=== PATIENT | female | born 1990 | race Caucasian/White ===

== ENCOUNTER 2024-11-09 18:05 | Emergency (ER) | payer MEDICAID ==
[~2024-11-09] VITALS: Ht 172.7 cm; Wt 107.9 kg
[2024-11-09] MEDS ORDERED: predniSONE 20 MG TAB PO ONE (18:15)
[2024-11-09] MEDS ORDERED: ALBUTEROL/IPRATROPIUM 3 ML NEB INH ONE (18:15)
[2024-11-09] MEDS ORDERED: TRELEGY ELLIPT1 EACH INH (18:20)
[2024-11-09] MEDS ORDERED: VENTOLIN HFA18 GM INH (18:21)
[2024-11-09 19:50] VITALS: BP 146/86
== END 2024-11-09 19:50 | disposition home or self-care (01) ==
LOC: ED 18:05
DX: J45.909 Unspecified asthma, uncomplicated (principal); Z88.5 Allergy status to narcotic agent; Z88.2 Allergy status to sulfonamides; Z88.9 Allergy status to unspecified drugs, medicaments and biological substances
CPT/HCPCS: 94640; 99284; J7512

== ENCOUNTER 2025-01-13 16:08 | Emergency (ER) | payer MEDICAID ==
[~2025-01-13] VITALS: Ht 172.7 cm; Wt 107.9 kg
[~2025-01-13 16:08] MED LIST: TRELEGY ELLIPT1 EACH INH; VENTOLIN HFA18 GM INH
--- OUTSIDE RECORDS SUMMARY | 2025-01-13 16:13 | XMS ---
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 EFaraz VISIT COUNT (12 MO.) [address] [place] TOTAL 12 NOTE: Visits indicate total known visits. ED/C VISIT TRACKING (12 MO.) 01/13/2025 16:09 [facility] TYPE: Emergency COMPLAINT: - ALLERGIC REACTION 11/09/2024 18:05 [facility] TYPE: Emergency COMPLAINT: - TROUBLE BREATHING DIAGNOSES: - Allergy status to narcotic agent - Allergy status to sulfonamides - Allergy status to unspecified drugs, medicaments and biological substances - Unspecified asthma, uncomplicated 10/11/2024 13:35 [facility] TYPE: Emergency COMPLAINT: - Shortness of breath DIAGNOSES: - Acute bronchospasm - Dyspnea, unspecified - Shortness of breath 10/06/2024 09:32 [facility] TYPE: Emergency COMPLAINT: - Fever 102, cough, vomiting DIAGNOSES: - Other specified viral diseases - Pneumonia, unspecified organism - Tinea cruris - Urinary tract infection, site not specified - Fever - Fever 102 - Fever 102, cough, vomiting 09/17/2024 14:27 [facility] TYPE: Emergency COMPLAINT: - Med Refills DIAGNOSES: - Med Refills - Medication Refill 09/16/2024 15:22 [facility] TYPE: Emergency COMPLAINT: - Left Hip Pain DIAGNOSES: - Unspecified injury of pelvis, initial encounter - Urinary tract infection, site not specified - Hip Pain 08/22/2024 21:39 [facility] TYPE: Emergency COMPLAINT: - SOB DIAGNOSES: - Severe persistent asthma with (acute) exacerbation - Shortness of breath - Shortness of Breath - SOB 08/03/2024 09:36 [facility] TYPE: Emergency COMPLAINT: - Left hand laceration DIAGNOSES: - Laceration without foreign body of left middle finger without damage to nail, initial encounter - Laceration - Left hand laceration 06/01/2024 15:01 [facility] TYPE: Emergency COMPLAINT: - right foot pain DIAGNOSES: - Sprain of unspecified ligament of right ankle, initial encounter - Ankle Pain - right foot pain 05/22/2024 03:55 [facility] TYPE: Emergency COMPLAINT: - Asthma DIAGNOSES: - Moderate persistent asthma with (acute) exacerbation - Nausea with vomiting, unspecified - Shortness of breath - Asthma - Shortness of Breath - Vomiting 05/18/2024 04:57 [facility] TYPE: Emergency COMPLAINT: - SOB DIAGNOSES: - Moderate persistent asthma with (acute) exacerbation - Shortness of breath - Shortness of Breath - SOB 04/11/2024 15:35 [facility] TYPE: Emergency COMPLAINT: - Fall, hip pain DIAGNOSES: - Pain in right hip - Unspecified fall, initial encounter - Fall, hip pain - Hip Pain INPATIENT VISIT TRACKING (12 MO.) 10/06/2024 14:44 [facility] TYPE: Medical Surgical COMPLAINT: - Fever 102, cough, vomiting DIAGNOSES: - Other specified viral diseases - Pneumonia, unspecified organism - Severe persistent asthma with (acute) exacerbation - Tinea cruris - Urinary tract infection, site not specified [email or web address]
[2025-01-13] MEDS ORDERED: predniSONE 20 MG TAB PO ONE (16:15)
[2025-01-13] MEDS ORDERED: diphenhydrAMINE HCL 25 MG CAP PO ONE (16:15)
[2025-01-13] MEDS ORDERED: PREDNISONE20 MG PO (16:25)
[2025-01-13] MEDS ORDERED: IPRAT-ALBUT 0.5-3 ML INH (16:26)
[2025-01-13 17:15] VITALS: BP 199/77
== END 2025-01-13 17:15 | disposition home or self-care (01) ==
LOC: ED 16:08
DX: T78.49XA Other allergy, initial encounter (principal); J45.909 Unspecified asthma, uncomplicated; Z79.52 Long term (current) use of systemic steroids; Z79.51 Long term (current) use of inhaled steroids; Z79.899 Other long term (current) drug therapy; Z88.5 Allergy status to narcotic agent
CPT/HCPCS: 99282; J7512

== ENCOUNTER 2025-01-16 10:16 | Emergency (ER) | payer MEDICAID ==
[~2025-01-16] VITALS: Ht 172.7 cm; Wt 119.1 kg
[~2025-01-16 10:16] MED LIST changes: +IPRAT-ALBUT 0.5-3 ML INH; +PREDNISONE20 MG PO
--- OUTSIDE RECORDS SUMMARY | 2025-01-16 10:23 | XMS ---
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 E.Jorge VISIT COUNT (12 MO.) [address] TOTAL 13 NOTE: Visits indicate total known visits. ED/UCC VISIT TRACKING (12 MO.) 01/16/2025 10:17 [facility] TYPE: Emergency COMPLAINT: - ABD PAIN 01/13/2025 16:09 [facility] TYPE: Emergency COMPLAINT: - ALLERGIC REACTION DIAGNOSES: - Allergy status to narcotic agent - buttermaker (current) use of inhaled steroids - prison (current) use of systemic steroids - Other allergy, initial encounter - Other keno terminal operator (current) drug therapy - Rash and other nonspecific skin eruption - Unspecified asthma, uncomplicated 11/09/2024 18:05 [facility] TYPE: Emergency COMPLAINT: - TROUBLE BREATHING DIAGNOSES: - Allergy status to narcotic agent - Allergy status to sulfonamides - Allergy status to unspecified drugs, medicaments and biological substances - Unspecified asthma, uncomplicated 10/11/2024 13:35 [facility] TYPE: Emergency COMPLAINT: - Shortness of breath DIAGNOSES: - Acute bronchospasm - Dyspnea, unspecified - Shortness of breath 10/06/2024 09:32 [facility] TYPE: Emergency COMPLAINT: - Fever 102, cough, vomiting DIAGNOSES: - Other specified viral diseases - Pneumonia, unspecified organism - Tinea cruris - Urinary tract infection, site not specified - Fever - Fever 102 - Fever 102, cough, vomiting 09/17/2024 14:27 [facility] TYPE: Emergency COMPLAINT: - Med Refills DIAGNOSES: - Med Refills - Medication Refill 09/16/2024 15:22 [facility] TYPE: Emergency COMPLAINT: - Left Hip Pain DIAGNOSES: - Unspecified injury of pelvis, initial encounter - Urinary tract infection, site not specified - Hip Pain 08/22/2024 21:39 [facility] TYPE: Emergency COMPLAINT: - SOB DIAGNOSES: - Severe persistent asthma with (acute) exacerbation - Shortness of breath - Shortness of Breath - SOB 08/03/2024 09:36 [facility] TYPE: Emergency COMPLAINT: - Left hand laceration DIAGNOSES: - Laceration without foreign body of left middle finger without damage to nail, initial encounter - Laceration - Left hand laceration 06/01/2024 15:01 [facility] TYPE: Emergency COMPLAINT: - right foot pain DIAGNOSES: - Sprain of unspecified ligament of right ankle, initial encounter - Ankle Pain - right foot pain 05/22/2024 03:55 [facility] TYPE: Emergency COMPLAINT: - Asthma DIAGNOSES: - Moderate persistent asthma with (acute) exacerbation - Nausea with vomiting, unspecified - Shortness of breath - Asthma - Shortness of Breath - Vomiting 05/18/2024 04:57 [facility] TYPE: Emergency COMPLAINT: - SOB DIAGNOSES: - Moderate persistent asthma with (acute) exacerbation - Shortness of breath - Shortness of Breath - SOB 04/11/2024 15:35 [facility] TYPE: Emergency COMPLAINT: - Fall, hip pain DIAGNOSES: - Pain in right hip - Unspecified fall, initial encounter - Fall, hip pain - Hip Pain INPATIENT VISIT TRACKING (12 MO.) 10/06/2024 14:44 [facility] TYPE: Medical Surgical COMPLAINT: - Fever 102, cough, vomiting DIAGNOSES: - Other specified viral diseases - Pneumonia, unspecified organism - Severe persistent asthma with (acute) exacerbation - Tinea cruris - Urinary tract infection, site not specified [id number]
[2025-01-16 12:53] LABS: BASOPHILS 0.4 % (0.1-1.2); EOSINOPHILS 0.3 % (0.7-5.8); HEMATOCRIT 41.7 % (34.1-44.9); HEMOGLOBIN 13.9 g/dL (11.2-15.7); LYMPHOCYTES 11.1 % (19.3-51.7); MCH 30.2 PG (25.6-32.2); MCHC 33.3 g/dL (32.2-35.5); MCV 90.7 fL (79.4-94.8); MONOCYTES 1.2 % (4.7-12.5); NEUTROPHILS 86.6 % (34.0-71.1); PLATELET COUNT 407 K/uL (182-369)
[2025-01-16 13:09] LABS: ALBUMIN 3.6 g/dL (3.4-5.0); ANION GAP 12.1 (7-21); BILIRUBIN, TOTAL 0.3 mg/dL (0.2-1.0); BUN/CREATININE RATIO 16.66 (6.0-28.6); CALCIUM 8.7 mg/dL (8.5-10.1); CREATININE, SERUM 0.66 mg/dL (0.55-1.02); POTASSIUM 4.1 mmol/L (3.5-5.1); PROTEIN, TOTAL 7.2 g/dL (6.4-8.2)
[2025-01-16 13:59] LABS: BILIRUBIN, URINE NEGATIVE (negative); BLOOD/HGB, URINE NEGATIVE (Negative); KETONE, URINE NEGATIVE (Negative); LEUK ESTERASE, URINE NEGATIVE (negative); NITRITE, URINE NEGATIVE (negative); PH, URINE 7.5 (5-7)
[2025-01-16 15:11] VITALS: BP 119/798
== END 2025-01-16 15:12 | disposition home or self-care (01) ==
LOC: ED 10:16
PROVIDERS: Emergency Medicine
DX: N83.201 Unspecified ovarian cyst, right side (principal); J45.909 Unspecified asthma, uncomplicated; Z88.5 Allergy status to narcotic agent; Z79.899 Other long term (current) drug therapy
CPT/HCPCS: 36415; 74177; 80053; 81003; 83690; 84703; 85025; 99284-25; Q9967

== ENCOUNTER 2025-02-02 07:34 | Emergency (ER) | payer MEDICAID ==
[~2025-02-02] VITALS: Ht 172.7 cm; Wt 123.3 kg
--- OUTSIDE RECORDS SUMMARY | 2025-02-02 07:41 | XMS ---
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 E.Jorge VISIT COUNT (12 MO.) [address] TOTAL 14 NOTE: Visits indicate total known visits. ED/UCC VISIT TRACKING (12 MO.) 02/02/2025 07:35 [facility] TYPE: Emergency COMPLAINT: - LT HIP INJURY 01/16/2025 10:17 [facility] TYPE: Emergency COMPLAINT: - ABD PAIN DIAGNOSES: - Allergy status to narcotic agent - Other care home (current) drug therapy - Pelvic and perineal pain - Unspecified asthma, uncomplicated - Unspecified ovarian cyst, right side 01/13/2025 16:09 [facility] TYPE: [facility] COMPLAINT: - ALLERGIC REACTION DIAGNOSES: - Allergy status to narcotic agent - terminal clerk (current) use of inhaled steroids - custodial (current) use of systemic steroids - Other allergy, initial encounter - Other ocean transportation intermediary (current) drug therapy - Rash and other nonspecific skin eruption - Unspecified asthma, uncomplicated 11/09/2024 18:05 [facility] TYPE: Emergency COMPLAINT: - TROUBLE BREATHING DIAGNOSES: - Allergy status to narcotic agent - Allergy status to sulfonamides - Allergy status to unspecified drugs, medicaments and biological substances - Unspecified asthma, uncomplicated 10/11/2024 13:35 [facility] TYPE: Emergency COMPLAINT: - Shortness of breath DIAGNOSES: - Acute bronchospasm - Dyspnea, unspecified - Shortness of breath 10/06/2024 09:32 [facility] TYPE: Emergency COMPLAINT: - Fever 102, cough, vomiting DIAGNOSES: - Other specified viral diseases - Pneumonia, unspecified organism - Tinea cruris - Urinary tract infection, site not specified - Fever - Fever 102 - Fever 102, cough, vomiting 09/17/2024 14:27 [facility] TYPE: Emergency COMPLAINT: - Med Refills DIAGNOSES: - Med Refills - Medication Refill 09/16/2024 15:22 [facility] TYPE: Emergency COMPLAINT: - Left Hip Pain DIAGNOSES: - Unspecified injury of pelvis, initial encounter - Urinary tract infection, site not specified - Hip Pain 08/22/2024 21:39 [facility] TYPE: Emergency COMPLAINT: - SOB DIAGNOSES: - Severe persistent asthma with (acute) exacerbation - Shortness of breath - Shortness of Breath - SOB 08/03/2024 09:36 [facility] TYPE: Emergency COMPLAINT: - Left hand laceration DIAGNOSES: - Laceration without foreign body of left middle finger without damage to nail, initial encounter - Laceration - Left hand laceration 06/01/2024 15:01 [facility] TYPE: Emergency COMPLAINT: - right foot pain DIAGNOSES: - Sprain of unspecified ligament of right ankle, initial encounter - Ankle Pain - right foot pain 05/22/2024 03:55 [facility] TYPE: Emergency COMPLAINT: - Asthma DIAGNOSES: - Moderate persistent asthma with (acute) exacerbation - Nausea with vomiting, unspecified - Shortness of breath - Asthma - Shortness of Breath - Vomiting 05/18/2024 04:57 [facility] TYPE: Emergency COMPLAINT: - SOB DIAGNOSES: - Moderate persistent asthma with (acute) exacerbation - Shortness of breath - Shortness of Breath - SOB 04/11/2024 15:35 [facility] TYPE: Emergency COMPLAINT: - Fall, hip pain DIAGNOSES: - Pain in right hip - Unspecified fall, initial encounter - Fall, hip pain - Hip Pain INPATIENT VISIT TRACKING (12 MO.) 10/06/2024 14:44 [facility] TYPE: Medical Surgical COMPLAINT: - Fever 102, cough, vomiting DIAGNOSES: - Other specified viral diseases - Pneumonia, unspecified organism - Severe persistent asthma with (acute) exacerbation - Tinea cruris - Urinary tract infection, site not specified [id number]
[2025-02-02] MEDS ORDERED: MONTELUKAST SOD10 MG PO (07:49)
[2025-02-02 08:53] VITALS: BP 146/78
== END 2025-02-02 08:53 | disposition home or self-care (01) ==
LOC: ED 07:34
DX: M25.552 Pain in left hip (principal); J45.909 Unspecified asthma, uncomplicated; Z91.81 History of falling; Z88.5 Allergy status to narcotic agent; Z88.8 Allergy status to other drugs, medicaments and biological substances; Z91.018 Allergy to other foods; Z79.51 Long term (current) use of inhaled steroids; Z79.899 Other long term (current) drug therapy
CPT/HCPCS: 73502; 99283